=== PATIENT | male | born 1980 | race Caucasian/White ===

== ENCOUNTER → 2019-10-12 14:30 | Outpatient (CLI) | payer OTHER, SELFPAY ==
--- NOTE | 2019-10-12 14:37 | US_ITS ---
PROCEDURE: US ABDOMEN LIMITED CLINICAL INDICATION: RUQ PAIN COMPARISON: No exams were available for comparison FINDINGS: PANCREAS: Unremarkable. No obvious mass or abnormal fluid collection. No ductal dilatation LIVER: No focal liver lesions demonstrated. Homogeneous echogenicity. No intrahepatic biliary ductal dilatation evident. There is appropriate direction of blood flow within a non dilated portal vein RIGHT KIDNEY: Unremarkable. Normal size and echogenicity. No hydronephrosis GALLBLADDER: No gallstones, gallbladder wall thickening, pericholecystic fluid, or biliary dilatation. Gallbladder fold noted with Phrygian cap. A small polyp is noted within the Phrygian cap IMPRESSION: No gallstones. Small polyp noted within the gallbladder Phrygian Dictated by: Sukumar Choi MD 10/12/2019 18:59 Electronically signed by Sukumar Choi MD in [place] 10/12/2019 18:59
== END ==
PROVIDERS: PCP Nurse Practitioner; Visit Provider Nurse Practitioner
DX: R10.11 Right upper quadrant pain (principal)
CPT/HCPCS: 76705

== ENCOUNTER → 2019-12-19 10:48 | Outpatient (CLI) | payer OTHER, SELFPAY ==
--- NOTE | 2019-12-19 10:51 | NM_ITS ---
PROCEDURE: NM HEPATOBILIARY W PHARM CLINICAL INDICATION: RUQ PAIN,POLYP OF GB COMPARISON: US ABDOMEN LIMITED from 10/12/2019 TECHNIQUE: DOSE: 8.05 mCi technetium Choletec and 1.6 mcg of CCK FINDINGS: Homogeneous activity is present within the hepatic parenchyma. Activity is present in the gallbladder by 5 minutes. Activity is present in the small bowel by 15 minutes . The gallbladder ejection fraction is calculated to be . CCK-The patient did not report pain or other symptoms during CCK infusion. IMPRESSION: Unremarkable hepatobiliary scan with normal gallbladder ejection Dictated by: Sukumar Choi MD 12/19/2019 15:06 Electronically signed by Sukumar Choi MD in [place] 12/19/2019 15:06
--- NOTE | 2019-12-19 11:02 | HMH.ITSHM ---
Current Home Medications as stated by this patient Dejuan Rivera or front office representative. 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
--- NOTE | 2019-12-19 12:39 | XR_ITS ---
PROCEDURE: XR MULTIPLE SPINE 6+V CLINICAL INDICATION: RT FLANK PAIN,CERVICAL RADICULOPATHY Neck pain, back pain COMPARISON: No exams were available for comparison FINDINGS: Cervical spine: Five views: Normal alignment. No fracture or dislocation. No foraminal narrowing. There is minimal endplate hypertrophy anteriorly at C5-C6 and C6-C7. No lytic or blastic change. No cervical rib. Thoracic spine: Three views: Normal alignment. No fracture or dislocation. No lytic or blastic change IMPRESSION: Essentially negative cervical and thoracic spine Dictated by: Sukumar Choi MD 12/19/2019 13:53 Electronically signed by Sukumar Choi MD in [place] 12/19/2019 13:53
== END ==
PROVIDERS: PCP Nurse Practitioner; Visit Provider Family Medicine
DX: R10.11 Right upper quadrant pain (principal); K82.4 Cholesterolosis of gallbladder
CPT/HCPCS: 72084; 78227; A9537; J2805

== ENCOUNTER → 2019-12-27 12:45 | Outpatient (CLI) | payer OTHER, SELFPAY ==
--- NOTE | 2019-12-27 12:53 | MR_ITS ---
PROCEDURE: MR THORACIC SPINE WO CON CLINICAL INDICATION: THORACIC DDD Bilateral arm numbness and tingling COMPARISON: XR MULTIPLE SPINE 6+V from 12/19/2019 TECHNIQUE: Routine multiplanar multi echo sequences are performed without gadolinium enhancement. FINDINGS: There is normal alignment. No acute fracture or dislocation. No significant degenerative change. No evidence of disc herniation or canal stenosis IMPRESSION: Negative MRI of the thoracic spine Dictated by: Sukumar Choi MD 12/28/2019 14:32 Electronically signed by Sukumar Choi MD in [place] 12/28/2019 14:32
== END ==
PROVIDERS: PCP Nurse Practitioner; Visit Provider Nurse Practitioner
DX: M51.34 Other intervertebral disc degeneration, thoracic region (principal)
CPT/HCPCS: 72146

== ENCOUNTER → 2022-05-26 09:00 | Outpatient (CLI) | payer BC, SELFPAY ==
[2022-05-26 18:41] LABS: Coronavirus 19, PCR Not Detected (NotDetected); Influenza A, PCR Not Detected (NotDetected); Influenza B, PCR Not Detected (NotDetected)
[2022-05-26 18:49] LABS: Basophils # 0.1 K/mm3 (0-0.2); Basophils % 0.8 % (0.1-2.0); Eosinophils # 0.2 K/mm3 (0.0-0.4); Eosinophils % 1.5 % (0.1-12.0); Hematocrit 52.9 % (42.0-52.0); Hemoglobin 16.9 g/dL (14.1-18.0); Lymphocytes # 1.8 K/mm3 (0.7-4.5); Lymphocytes % 15.7 % (10-50); Mean Corpuscular Hemoglobin 31.3 pg (27.0-31.2); Mean Corpuscular Volume 97.8 fl (80-94); Mean Platelet Volume 10.1 fl (7.4-10.4); Monocytes # 0.7 K/mm3 (0.1-1.0); Monocytes % 5.6 % (1.7-9.3); Neutrophils # 8.8 K/mm3 (1.8-7.8); Neutrophils % 76.3 % (37.0-80.0); Platelet Count 244 K/mm3 (142-424); Red Blood Count 5.41 M/mm3 (4.60-6.20); Red Cell Distribution Width 12.9 % (11.5-17.5); White Blood Count 11.5 K/mm3 (4.8-10.8)
[2022-05-28 08:16] LABS: HIV Screen 4th Generation wRfx Non Reactive (Non Reactive)
[2022-05-28 09:41] LABS: HSV 2 IgG, Type Spec <0.91 index (0.00-0.90)
[2022-05-28 11:56] LABS: Rapid Plasma Reagin Ab Titer Non Reactive (NonRea<1:1)
[2022-05-28 22:08] LABS: Neisseria gonorrhoeae, NAA Negative (Negative)
[2022-06-25 11:39] LABS: Hep A Ab, IgM NEGATIVE; Hepatitis B Core Antibody IgM NEGATIVE; Hepatitis B Surface Antigen NEGATIVE; Hepatitis C Antibody <0.1
== END ==
PROVIDERS: PCP Nurse Practitioner; Visit Provider Nurse Practitioner
DX: Z11.3 Encounter for screening for infections with a predominantly sexual mode of transmission (principal); J06.9 Acute upper respiratory infection, unspecified
CPT/HCPCS: 80074; 85025; 86592; 86695; 86703; 86790; 87491; 87591; C9803; G0432; U0003; U0005

== ENCOUNTER 2025-06-14 09:12 | Outpatient (CLI) | payer BC, SELFPAY ==
--- NOTE | 2025-06-14 09:15 | XR_ITS ---
FINAL REPORT CLINICAL HISTORY: paresthesia and pain of BUE FINDINGS: AP, lateral and odontoid views of the cervical spine were obtained. There is no prior exam for comparison. There is no acute fracture or malalignment. There is mild degenerative disc disease, most pronounced at C6-7. Vertebral body height is preserved. The precervical soft tissues are normal. IMPRESSION: Mild degenerative disc disease. Reviewed, Interpreted and Dictated by Josefa Gardiner MD Transcribed by Aneta Laura Authenticated and [facility]
--- OUTSIDE RECORDS SUMMARY | 2025-06-14 09:17 | XMS_ITS | Clinical Summary ---
Author Organization 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 Active Social History Tobacco Use Types Packs/Day Years Used Date Smoking Tobacco: Every Day Smokeless Tobacco: Never Sex and Gender Information Value Date Recorded Sex Assigned at Not on file Legal Sex Male 9:08 PM EDT Gender Identity Not on file Sexual Orientation Not on file Last Filed Vital Signs Vital Sign Reading Time Taken Comments Blood Pressure 126/70 10/24/2019 9:46 AM EDT Pulse 79 10/24/2019 9:46 AM EDT Temperature 36.6 C (97.9 F) 10/24/2019 9:46 AM EDT Respiratory Rate 16 10/24/2019 9:46 AM EDT Oxygen Saturation - - Inhaled Oxygen Concentration - - Weight 81.2 kg (179 lb) 10/24/2019 9:46 AM EDT Height 177.8 cm (5' 10 ) 10/24/2019 9:46 AM EDT Body Mass Index 25.68 10/24/2019 9:46 AM EDT Plan of Treatment Health Maintenance Due Date Last Done Comments Annual Wellness Exam 1985 DTaP/TDaP/Td (1 - Tdap) 2001 Hepatitis B Vaccine (1 of 3 - 19+ 3-dose series) 2001 COVID-19 Vaccine (2024-2 6 season) 2025 Influenza Vaccine (#1) 2025 Meningococcal B Vaccine Aged Out No l onger eligible based on patient's age to complete this topic Pneumococcal Vaccine 0-49 Aged Out No longer eligible based on patient's age to complete this topic [place] [address] [place] [id number]
== END 2025-06-14 23:59 | disposition home or self-care (01) ==
LOC: RAD 09:13
PROVIDERS: PCP Nurse Practitioner; Visit Provider Nurse Practitioner
DX: M50.323 Other cervical disc degeneration at C6-C7 level (principal); M79.601 Pain in right arm; M79.602 Pain in left arm
CPT/HCPCS: 72040